=== PATIENT | female | born 2000 | race Caucasian/White ===

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

== ENCOUNTER → 2021-04-25 | Outpatient (CLI) | payer OTHER | LOC: M WUC 10:27 | PROVIDERS: ATTEND Nurse Practitioner Family | DX: L68.0 Hirsutism (principal) ==

== ENCOUNTER → 2021-08-29 | Outpatient (REF) | payer OTHER | LOC: M SFHCWAGY 12:57 | PROVIDERS: ATTEND Physician Assistant | DX: R05.1 Acute cough (principal) ==

== ENCOUNTER → 2021-09-01 | Outpatient (CLI) | payer OTHER ==
[2021-09-01 12:25] LABS: BASO % 0.6 % (0.0-1.0); EOS # 0.1 10^3/uL (0.0-0.5); EOS % 1.7 % (0.0-3.0); HEMATOCRIT 39.1 % (36.0-47.0); HEMOGLOBIN 12.5 g/dl (12.0-15.5); LYMPH # 1.2 10^3/uL (1.5-5.0); LYMPH % 26.2 % (24.0-44.0); MEAN CORPUSCULAR HEMOGLOBIN 29.8 pg (27.0-33.0); MEAN CORPUSCULAR VOLUME 93.1 fl (80.0-96.0); MONO # 0.3 10^3/uL (0.0-0.8); MONO % 6.1 % (2.0-8.0); NEUTROPHILS % 65.2 % (36.0-66.0); PLATELET COUNT, AUTOMATED 192 10^3/uL (150-450); WHITE BLOOD COUNT 4.6 10^3/uL (4.0-10.0)
[2021-09-01 12:46] LABS: ERYTHROCYTE SEDIMENTATION RATE 12 mm/hr (0-20)
[2021-09-01 13:24] LABS: ALT/SGPT 15 U/L (12-78); BILIRUBIN,TOTAL 0.3 MG/DL (0.2-1.0); BLOOD UREA NITROGEN 5 MG/DL (7-18); C REACTIVE PROTEIN QUANTITATIV 0.52 MG/DL (0.00-0.30); CALCIUM LEVEL 9.2 MG/DL (8.5-10.1); CARBON DIOXIDE LEVEL 26 MEQ/L (21-32); CHLORIDE LEVEL 111 MEQ/L (98-107); CREATININE FOR GFR 0.78 MG/DL (0.55-1.30); GLUCOSE, FASTING 87 MG/DL (70-100); IRON (FE) 45 UG/DL (50-170); MAGNESIUM LEVEL 2.3 MG/DL (1.8-2.4); PERCENT SATURATION 13.6 % (13.2-45.0); POTASSIUM SERUM 4.2 MEQ/L (3.5-5.1); SODIUM LEVEL 141 MEQ/L (136-145); TOTAL IRON BINDING CAPACITY 331 UG/DL (250-450); VITAMIN B12 LEVEL 595 PG/ML
[2021-09-01 13:25] LABS: FOLATE 3.8 NG/ML
[2021-09-01 13:57] LABS: HEPATITIS C VIRUS ABY INDEX < 0.0 INDEX (<0.8)
[2021-09-01 14:08] LABS: HIV 1&2 SCREEN CENTAUR NEGATIVE (NEGATIVE)
[2021-09-06 08:09] LABS: F002-IgE Milk < 0.10 kU/L (Class 0); F004-IgE Wheat < 0.10 kU/L (Class 0); F013-IgE Peanut < 0.10 kU/L (Class 0); F014-IgE Soybean < 0.10 kU/L (Class 0); F026-IgE Pork < 0.10 kU/L (Class 0); F027-IgE Beef < 0.10 kU/L (Class 0); F245-IgE Egg, Whole < 0.10 kU/L (Class 0); FX02-IgE Food Mix (Sea Foods) Negative (.); TISSUE TRANSGLUTAMINASE IgA <2 U/mL (0-3)
== END ==
LOC: M WUC 09:32
PROVIDERS: ATTEND Physician Assistant
DX: T78.1XXA Other adverse food reactions, not elsewhere classified, initial encounter (principal); J30.9 Allergic rhinitis, unspecified; Z11.3 Encounter for screening for infections with a predominantly sexual mode of transmission; E55.9 Vitamin D deficiency, unspecified
CPT/HCPCS: 36415; 80053; 82306; 82607; 82746; 83550; 83735; 85025; 85652; 86003; 86140; 86364; 86780; 86803; 87389; G0463

== ENCOUNTER → 2021-09-05 | Outpatient (REF) | payer OTHER ==
[2021-09-05 14:27] LABS: GC DNA AMPLIFICATION NEGATIVE (NEGATIVE)
== END ==
LOC: M SFHCPLAZ 12:01
PROVIDERS: ATTEND Physician Assistant
DX: Z11.3 Encounter for screening for infections with a predominantly sexual mode of transmission (principal)

== ENCOUNTER → 2021-09-07 | Outpatient (CLI) | payer OTHER | LOC: M CARPUL 08:00 | PROVIDERS: ATTEND Physician Assistant | DX: R01.2 Other cardiac sounds (principal) ==

== ENCOUNTER → 2021-09-19 | Outpatient (CLI) | payer OTHER | LOC: M WUC 13:21 | PROVIDERS: ATTEND Physician Assistant | DX: R39.15 Urgency of urination (principal) | CPT/HCPCS: 36415; 81002; 84702; 87088; 87186; G0463 ==

== ENCOUNTER → 2021-10-11 | Outpatient (REF) | payer OTHER ==
[2021-10-11 15:07] LABS: GC DNA AMPLIFICATION NEGATIVE (NEGATIVE)
== END ==
LOC: M SFHCADAM 12:50
PROVIDERS: ATTEND Physician Assistant
DX: Z87.440 Personal history of urinary (tract) infections (principal)

== ENCOUNTER → 2022-01-20 | Outpatient (REF) | payer OTHER ==
[2022-01-20 20:55] LABS: GC DNA AMPLIFICATION NEGATIVE (NEGATIVE)
== END ==
LOC: M LAB REF 19:07
PROVIDERS: ATTEND Physician Assistant
DX: R30.0 Dysuria (principal)

== ENCOUNTER → 2022-01-26 | Outpatient (REF) | payer OTHER | LOC: M PLALAB 15:13 | PROVIDERS: ATTEND Nurse Practitioner Family | DX: Z12.4 Encounter for screening for malignant neoplasm of cervix (principal); R87.615 Unsatisfactory cytologic smear of cervix | CPT/HCPCS: G0123; G0463 ==

== ENCOUNTER → 2022-02-09 | Outpatient (REF) | payer OTHER | LOC: M PLALAB 12:56 | PROVIDERS: ATTEND Nurse Practitioner Family | DX: Z12.4 Encounter for screening for malignant neoplasm of cervix (principal) | CPT/HCPCS: 87624; G0123; G0463 ==

== ENCOUNTER → 2022-04-20 | Outpatient (CLI) | payer OTHER ==
[2022-04-20 13:41] LABS: HEMATOCRIT 36.5 % (36.0-47.0); HEMOGLOBIN 11.9 g/dl (12.0-15.5); MEAN CORPUSCULAR HEMOGLOBIN 30.4 pg (27.0-33.0); MEAN CORPUSCULAR HGB CONC 32.6 g/dl (32.0-36.5); MEAN CORPUSCULAR VOLUME 93.1 fl (80.0-96.0); PLATELET COUNT, AUTOMATED 167 10^3/uL (150-450); RED BLOOD COUNT 3.92 10^6/uL (4.00-5.40); WHITE BLOOD COUNT 9.9 10^3/uL (4.0-10.0)
[2022-04-20 14:19] LABS: HIV 1&2 SCREEN CENTAUR NEGATIVE (NEGATIVE)
[2022-04-20 14:28] LABS: HEPATITIS C VIRUS ABY INDEX < 0.0 INDEX (<0.8)
[2022-04-21 15:42] LABS: GC DNA AMPLIFICATION NEGATIVE (NEGATIVE)
== END ==
LOC: M PLALAB 10:57
PROVIDERS: ATTEND Obstetrics & Gynecology
DX: Z34.80 Encounter for supervision of other normal pregnancy, unspecified trimester (principal)

== ENCOUNTER → 2022-06-12 | Outpatient (CLI) | payer OTHER | LOC: M WHC 06:58 | PROVIDERS: ATTEND Obstetrics & Gynecology | DX: Z36.89 Encounter for other specified antenatal screening (principal); Z3A.19 19 weeks gestation of pregnancy | CPT/HCPCS: 76811; G0463 ==

== ENCOUNTER → 2022-08-08 | Outpatient (CLI) | payer OTHER ==
[2022-08-08 16:34] LABS: HEMATOCRIT 33.3 % (36.0-47.0); HEMOGLOBIN 10.8 g/dl (12.0-15.5); MEAN CORPUSCULAR HEMOGLOBIN 31.1 pg (27.0-33.0); MEAN CORPUSCULAR HGB CONC 32.4 g/dl (32.0-36.5); PLATELET COUNT, AUTOMATED 146 10^3/uL (150-450); RED BLOOD COUNT 3.47 10^6/uL (4.00-5.40); WHITE BLOOD COUNT 9.9 10^3/uL (4.0-10.0)
== END ==
LOC: M PLALAB 13:57
PROVIDERS: ATTEND Advanced Practice Midwife
DX: Z34.02 Encounter for supervision of normal first pregnancy, second trimester (principal)
CPT/HCPCS: 36415; 82950; 85027; 86850; 86900; 86901; 90471; 90715; G0463

== ENCOUNTER → 2022-09-07 | Outpatient (CLI) | payer OTHER | LOC: M WHC 11:15 | PROVIDERS: ATTEND Obstetrics & Gynecology | DX: O34.593 Maternal care for other abnormalities of gravid uterus, third trimester (principal); Z3A.32 32 weeks gestation of pregnancy ==

== ENCOUNTER → 2022-10-10 | Outpatient (REF) | payer OTHER | LOC: M PLALAB 09:48 | PROVIDERS: ATTEND Obstetrics & Gynecology | DX: Z34.80 Encounter for supervision of other normal pregnancy, unspecified trimester (principal) | CPT/HCPCS: 87081; G0463 ==

== ENCOUNTER 2022-10-25 01:09 | Outpatient (CLI) | payer OTHER ==
[~2022-10-25] VITALS: Ht 182.9 cm; Wt 75.1 kg
[2022-10-25 01:21] VITALS: BP 135/82
== END 2022-10-25 02:10 | disposition home or self-care (01) ==
LOC: M LDO 01:09
PROVIDERS: ATTEND Advanced Practice Midwife
DX: O36.8130 Decreased fetal movements, third trimester, not applicable or unspecified (principal); Z3A.38 38 weeks gestation of pregnancy
CPT/HCPCS: 59025; G0463

== ENCOUNTER → 2023-06-28 | Outpatient (REF) | payer OTHER ==
[~2023-06-28] MED LIST: ACET-683 PO; CLIN2CR PV; GNP250TA9 PO; IBUP80TA PO; PRENTAB9 PO
[2023-06-28 16:57] LABS: BASO % 0.5 % (0.0-1.0); EOS # 0.1 10^3/uL (0.0-0.5); HEMATOCRIT 40.7 % (36.0-47.0); HEMOGLOBIN 13.1 g/dl (12.0-15.5); LYMPH % 33.2 % (24.0-44.0); MEAN CORPUSCULAR HEMOGLOBIN 29.8 pg (27.0-33.0); MEAN CORPUSCULAR HGB CONC 32.2 g/dl (32.0-36.5); MEAN CORPUSCULAR VOLUME 92.5 fl (80.0-96.0); MONO # 0.5 10^3/uL (0.0-0.8); MONO % 7.4 % (2.0-8.0); NEUTROPHILS # 3.5 10^3/uL (1.5-8.5); NEUTROPHILS % 57.7 % (36.0-66.0); PLATELET COUNT, AUTOMATED 179 10^3/uL (150-450); WHITE BLOOD COUNT 6.1 10^3/uL (4.0-10.0)
[2023-06-28 17:10] LABS: ALBUMIN 4.1 G/DL (3.2-5.2); ALKALINE PHOSPHATASE 58 U/L (46-116); ALT/SGPT 17 U/L (7.0-40); AST/SGOT < 8 U/L (<34); BILIRUBIN,TOTAL 0.5 MG/DL (0.3-1.2); BLOOD UREA NITROGEN 18 MG/DL (9-23); CARBON DIOXIDE LEVEL 27 MMOL/L (20-31); CHLORIDE LEVEL 110 MMOL/L (98-107); CREATININE FOR GFR 0.69 MG/DL (0.55-1.30); GLOMERULAR FILTRATION RATE > 60.0 (>60); GLUCOSE, FASTING 94 MG/DL (60-100); IRON (FE) 69 UG/DL (50-170); PERCENT SATURATION 22.6 % (13.2-45.0); POTASSIUM SERUM 4.3 MMOL/L (3.5-5.1); SODIUM LEVEL 144 MMOL/L (136-145); TOTAL IRON BINDING CAPACITY 305 UG/DL (250-425); TOTAL PROTEIN 6.7 G/DL (5.7-8.2)
[2023-06-28 17:11] LABS: FREE T4 1.07 NG/DL (0.89-1.76); THYROID STIMULATING HORMONE 0.905 uIU/ML (0.55-4.78)
[2023-06-28 17:12] LABS: FOLATE > 24.0 NG/ML (>5.4); TOTAL 25(OH) VITAMIN D 36.4 NG/ML (20.0-100.0)
[2023-06-28 17:13] LABS: VITAMIN B12 LEVEL 642 PG/ML (211-911)
== END ==
LOC: M LABWUC 16:31
PROVIDERS: ATTEND Physician Assistant
DX: J30.2 Other seasonal allergic rhinitis (principal); F43.22 Adjustment disorder with anxiety; K64.9 Unspecified hemorrhoids; R19.8 Other specified symptoms and signs involving the digestive system and abdomen; R53.83 Other fatigue

== ENCOUNTER → 2023-10-19 | Outpatient (REF) | payer OTHER | LOC: M WUC 18:55 | PROVIDERS: ATTEND Registered Nurse | DX: J02.9 Acute pharyngitis, unspecified (principal) ==

== ENCOUNTER → 2023-10-21 | Outpatient (REF) | payer OTHER | LOC: M SFHCADAM 17:14 | PROVIDERS: ATTEND Physician Assistant Medical | DX: R50.9 Fever, unspecified (principal) ==

== ENCOUNTER → 2023-10-22 | Outpatient (CLI) | payer OTHER | LOC: M PLALAB 14:14 | PROVIDERS: ATTEND Physician Assistant Medical | DX: R21 Rash and other nonspecific skin eruption (principal) ==

== ENCOUNTER → 2024-01-02 | Outpatient (REF) | payer OTHER ==
[2024-01-02 18:32] LABS: Trichomonas vaginalis (AMP) NOT DETECTED (NEGATIVE)
[2024-01-02 18:55] LABS: GC DNA AMPLIFICATION NEGATIVE (NEGATIVE)
== END ==
LOC: M SFHCWAGY 16:52
PROVIDERS: ATTEND Nurse Practitioner Family
DX: N73.9 Female pelvic inflammatory disease, unspecified (principal)

== ENCOUNTER → 2024-04-17 | Outpatient (CLI) | payer OTHER | LOC: M ADAMS 08:37 | PROVIDERS: ATTEND Physician Assistant | DX: S63.91XA Sprain of unspecified part of right wrist and hand, initial encounter (principal) ==

== ENCOUNTER → 2024-05-25 | Outpatient (REF) | payer OTHER | LOC: M SFHCWAGY 13:39 | PROVIDERS: ATTEND Nurse Practitioner Family | DX: Z12.4 Encounter for screening for malignant neoplasm of cervix (principal); R87.612 Low grade squamous intraepithelial lesion on cytologic smear of cervix (LGSIL) ==

== ENCOUNTER → 2024-09-08 | Outpatient (CLI) | payer OTHER | LOC: M WHC 11:29 | PROVIDERS: ATTEND Obstetrics & Gynecology | DX: Z34.80 Encounter for supervision of other normal pregnancy, unspecified trimester (principal); Z3A.18 18 weeks gestation of pregnancy ==

== ENCOUNTER → 2024-10-05 | Outpatient (CLI) | payer OTHER | LOC: M WHC 11:22 | PROVIDERS: ATTEND Obstetrics & Gynecology | DX: O44.02 Complete placenta previa NOS or without hemorrhage, second trimester (principal) ==

== ENCOUNTER → 2024-11-02 | Outpatient (CLI) | payer OTHER ==
[2024-11-02 15:34] LABS: PLATELET COUNT, AUTOMATED 158 10^3/uL (150-450)
[2024-11-02 15:37] LABS: GLUCOSE CHALLENGE TEST 1 HOUR 156 MG/DL (LESS THAN 140)
[2024-11-02 16:06] LABS: HIV 1&2 SCREEN NEGATIVE (NEGATIVE)
[2024-11-02 16:14] LABS: HEPATITIS C VIRUS ABY INDEX 0.02 INDEX (<0.8)
[2024-11-02 16:38] LABS: Trichomonas vaginalis (AMP) NOT DETECTED (NEGATIVE)
[2024-11-02 17:02] LABS: GC DNA AMPLIFICATION NEGATIVE (NEGATIVE)
== END ==
LOC: M PLALAB 10:17
PROVIDERS: ATTEND Nurse Practitioner Family
DX: Z34.80 Encounter for supervision of other normal pregnancy, unspecified trimester (principal)

== ENCOUNTER → 2024-11-20 | Outpatient (CLI) | payer OTHER | LOC: M LAB 07:29 | PROVIDERS: ATTEND Nurse Practitioner Family | DX: O99.810 Abnormal glucose complicating pregnancy (principal); Z3A.00 Weeks of gestation of pregnancy not specified ==

== ENCOUNTER → 2025-01-13 | Outpatient (REF) | payer OTHER | LOC: M SFHCWAGY 12:51 | PROVIDERS: ATTEND Advanced Practice Midwife | DX: Z34.83 Encounter for supervision of other normal pregnancy, third trimester (principal) ==

== ENCOUNTER 2025-02-08 14:53 | Inpatient (IN) | payer OTHER ==
[~2025-02-08] VITALS: Ht 182.9 cm; Wt 74.1 kg
[~2025-02-08 14:53] MED LIST changes: +CLIN2CR EXT; -CLIN2CR PV
[2025-02-08] MEDS ORDERED: LIDOCAINE 1% MDV 20 ML VIAL INFIL PRN (15:05)
[2025-02-08] MEDS ORDERED: CARBOPROST TROMETHAMINE 250 MCG/ML AMP IM PRN (15:05)
[2025-02-08] MEDS ORDERED: OXYTOCIN INJ 10UNITS/ML 1ML VIAL IM PRN (15:05)
[2025-02-08 15:18] VITALS: BP 114/62; O2SAT 96
[2025-02-08 15:19] VITALS: O2SAT 97
[2025-02-08] MEDS ORDERED: HOME MED LIST COMPLETE! XX SCH (15:20)
[2025-02-08 15:48] LABS: PLATELET COUNT, AUTOMATED 155 10^3/uL (150-450)
[2025-02-08 16:48] LABS: HIV 1&2 SCREEN NEGATIVE (NEGATIVE)
[2025-02-08 16:56] LABS: HEPATITIS C VIRUS ABY INDEX 0.06 INDEX (<0.8)
[2025-02-08 19:01] VITALS: BP 116/67
[2025-02-08 19:02] VITALS: BP 116/67
[2025-02-08 19:48] VITALS: BP 123/79
[2025-02-08] MEDS: miSOPROStol 50 MCG 1/2 TABLET PO ONE (20:11)
[2025-02-09] VITALS (18 sets, daily range): BP systolic 110–127; BP diastolic 58–79; O2SAT 100
[2025-02-09] MEDS ORDERED: LR 1,000 ML IV SCH (00:25)
[2025-02-09] MEDS: OXYTOCIN DRIP 30 UNITS in IV 1 EA IV SCH (00:38)
[2025-02-09] MEDS ORDERED: NALOXONE INJ 0.4 MG/1 ML VIAL IV PRN (02:50)
[2025-02-09] MEDS ORDERED: diphenhydrAMINE 50 MG/ML VIAL IV PRN (02:50)
[2025-02-09] MEDS ORDERED: EPIDURAL/PCA KEYS XX PRN (02:50)
[2025-02-09] MEDS ORDERED: LR 500 ML IV PRN (02:50)
[2025-02-09] MEDS: FENTANYL/ROPIVACAINE/NACL BAG 100 ML EPIDURAL SCH (03:39)
[2025-02-09] MEDS: TRANEXAMIC ACID INJection 1,000 MG in NS 100 ML IV PRN (08:08)
[2025-02-09] MEDS: METHYLERGONOVINE MALEATE 0.2 MG/ML 1 ML VIAL IM PRN (08:08)
[2025-02-09] MEDS: OXYTOCIN DRIP 30 UNITS in IV 1 EA IV PRN (08:11)
[2025-02-09] MEDS: ONDANSETRON 4MG/2ML VIAL IV PRN (09:10)
[2025-02-09] MEDS ORDERED: ACETAMINOPHEN 325 MG TAB PO PRN (16:30)
[2025-02-09] MEDS ORDERED: METHYLERGONOVINE MALEATE 0.2 MG TAB PO PRN (16:30)
[2025-02-09] MEDS ORDERED: RHOGAM 300MCG (1500IU) INJ IM SCH (16:30)
[2025-02-09] MEDS ORDERED: IBUPROFEN 600 MG TAB PO PRN (16:30)
[2025-02-09] MEDS: IBUPROFEN 800 MG TAB PO PRN (16:38)
[2025-02-09] MEDS: DOCUSATE SODIUM 100 MG CAPSULE PO PRN (16:55)
[2025-02-09] MEDS: ACETAMINOPHEN 500 MG TAB PO PRN (19:26)
[2025-02-09] MEDS: DIBUCAINE 1% OINTMENT 30 GM TOP PRN (19:30)
[2025-02-09] MEDS: ANUSOL HC CREAM 30 GM TOP PRN (19:30)
[2025-02-10 04:12] LABS: PLATELET COUNT, AUTOMATED 153 10^3/uL (150-450)
[2025-02-10 06:00] VITALS: BP 115/74; O2SAT 99
[2025-02-10] MEDS: PRENATAL VITAMINS CHEWABLE TABLET PO SCH (09:00)
[2025-02-11] MEDS ORDERED: MEASLES,MUMPS,RUBELLA VACCINE INJ (MMR-II) SC.IMMUN ONE (09:00)
== END 2025-02-10 16:04 | disposition home or self-care (01) | DRG 807 ==
LOC: M LDI 14:53 → M OBS 02-09 10:28
PROVIDERS: ADMIT Advanced Practice Midwife; ATTEND Advanced Practice Midwife
PROC: 3E0P7GC Introduction of Other Therapeutic Substance into Female Reproductive, Via Natural or Artificial Opening (ICD-10-PCS; 2025-02-08)
PROC: 10E0XZZ Delivery of Products of Conception, External Approach (ICD-10-PCS; principal; 2025-02-09)
PROC: 0KQM0ZZ Repair Perineum Muscle, Open Approach (ICD-10-PCS; 2025-02-09)
DX: O70.1 Second degree perineal laceration during delivery (principal); Z37.0 Single live birth; Z3A.40 40 weeks gestation of pregnancy